=== PATIENT | female | born 1980 | race African-American/Black ===

== ENCOUNTER 2016-07-03 02:07 | Emergency (ER) | payer OTHER ==
[~2016-07-03] VITALS: Ht 157.5 cm; Wt 86.2 kg
[2016-07-03] MEDS ORDERED: CITRANATAL HAR1 EACH PO (02:24)
--- NOTE | 2016-07-03 02:42 | ED GI/GU/ABDOMINAL COMPLAINT ---
History of Present Illness General Chief Complaint: Female Urogenital Problems Stated Complaint: + PREG NOW SPOTTING Source: patient Exam Limitations: no limitations Vital Signs & Intake/Output Vital Signs & Intake/Output Vital Signs Date Time Temp Pulse Resp B/P B/P Pulse O2 O2 Flow FiO2 Mean Ox Delivery Rate 07/03 0710 98.4 72 20 114/57 97 Room Air 07/03 0221 98.0 81 16 169/62 98 Room Air Allergies Coded Allergies: No Known Allergies (07/03/16) Reconcile Medications Pnv59/Iron,Carb&Fum/FA/Dss/Dha (Citranatal [place] Capsule) 27 MG IRON-1 MG-50 MG-260 MG CAPSULE 1 CAP PO DAILY (Reported) Triage Note: 36YO FEMALE TO TRIAGE W/CO VAG SPOTTING AND CRAMPS THAT BEGAN TONITE. STATES POS TEST ON FRIDAY. LMP = 06/03 Triage Nurses Notes Reviewed? yes HPI: Patient presents for evaluation of vaginal spotting during . Patient states that she just found out she was over the past few days after 2 home tests and a follow-up blood test via her [facility] doctor. She states that over the past 2 days she has had intermittent mild blood spotting and cramping lower abdominal pain. Tonight she became concerned that she might be having a miscarriage. (MAE ORELLANA,BENITO Hernandes) LMP (ages 10-50): date ([id number]) ? y Is pt currently ? No Onset: Just prior to arrival Duration: hour(s):, better, constant Timing: recent history Quality/Severity: cramping, mild Location: suprapubic Radiation: no radiation Activities at Onset: none Prior Abdominal Problems: none Sexually Active: Yes Last Time You Were Sexual: less than 2 months ago Sexual Orientation: Heterosexual Use of Protection: No No Modifying Factors: none Associated Symptoms: abdominal pain (HIEN ORELLANA,TEODORA) Past History Travel History Traveled to [place] past 21 day No Medical History Any Pertinent Medical History? see below for history Surgical History Surgical History: non-contributory Psychosocial History What is your primary language Mongolian Tobacco Use: Refused to answer Family History Hx Contributory? No (MAE ORELLANA,BENITO Hernandes) Review of Systems Review of Systems Constitutional: Reports: no symptoms. EENTM: Reports: no symptoms. Respiratory: Reports: no symptoms. Cardiovascular: Reports: no symptoms. GI: Reports: no symptoms. Genitourinary: Reports: see HPI. Musculoskeletal: Reports: no symptoms. Skin: Reports: no symptoms. Neurological/Psychological: Reports: no symptoms. Hematologic/Endocrine: Reports: no symptoms. Immunologic/Allergic: Reports: no symptoms. All Other Systems: Reviewed and Negative (MAE ORELLANA,BENITO Hernandes) Physical Exam Physical Exam Gastrointestinal: SEE BELOW Comments: Gen.: Well-nourished, well-developed, no acute respiratory distress. Head: Normocephalic, atraumatic. Eyes: Normal inspection bilaterally Ears: Normal inspection bilaterally Nose: Normal inspection Throat/mouth : Moist mucosa Neck: Supple, full range of motion, no goiter Heart: Regular rate and rhythm, no murmurs rubs or gallops Lungs: Clear to auscultation bilaterally with normal air entry Chest: Nontender Back: Normal range of motion Abdomen: Soft, nontender, nondistended, normal bowel sounds Extremities: Normal range of motion grossly, equal radial pulses, no cyanosis clubbing or edema Neurologic: Cranial nerves grossly intact, speech is clear Skin: warm and dry Psychiatric: Calm, cooperative, no apparent delusions or hallucinations Pelvic: No blood in the vaginal vault, cervix is not effaced. (MAE ORELLANA,BENITO Hernandes) Core Measures ACS in differential dx? No Severe Sepsis Present: No Septic Shock Present: No (TEODORA STANFORD MD) Progress Differential Diagnosis: NORMAL , IMPENDING MISCARRIAGE, ECTOPIC Plan of Care: Orders Procedure Date/time Status TYPE & SCREEN (NOT X-MATCH) 07/03 0240 Complete HUMAN BETA HCG TITRE 07/03 0239 Complete Laboratory Tests 07/03/16 0240: Beta HCG, Quant 1428.7 Initial ED EKG: none Comments: 07/03/2016 6:59:12 AM patient signed out to Dr. Stanford at shift electronic data interchange specialist. (MAE ORELLANA,BENITO Hernandes) Diagnostic Imaging: Viewed by Me: Ultrasound. Discussed w/RAD: Ultrasound. Radiology Impression: No definite intrauterine gestation sac seen. No adnexal mass or ectopic cysts visualized. Corpus luteal cyst right ovary. Prominent solitary vessel left adnexa. Small right uterine fibroid. (TEODORA STANFORD MD) Departure Departure Disposition: HOME OR SELF CARE Condition: Stable Clinical Impression Primary Impression: Qualifiers: Weeks of gestation: less than 8 weeks Qualified Code: Z3A.01 - Less than 8 weeks gestation of Additional Instructions: Follow-up with your [facility] doctor for reevaluation as soon as possible to confirm an intrauterine . Your level is 1428. Your blood type is B+. Tylenol as needed for pain or discomfort. Return if any concerns or sudden worsening. Thank you for choosing the [facility] Emergency Department for your care. It was a pleasure to serve you today. Benito Sosa M.D. [facility] (MAE ORELLANA,BENITO Hernandes) Departure Time of Disposition: 847 Referrals: ALEIDA ORELLANA,AMANDA (PCP/Family) GREG ORELLANA,JOSE Macario Follow up in 2 days Departure Forms: Customer Survey General Discharge Information RELEASE- WORK (HIEN ORELLANA,TEODORA)
--- NOTE | 2016-07-03 08:42 | ULTRASOUND REPORT ---
EXAMINATION: US TRANSVAGINAL CLINICAL INFORMATION: Vaginal spotting during . COMPARISON: None TECHNIQUE: Transabdominal and transvaginal ultrasound the pelvis is performed. FINDINGS: On transabdominal ultrasound the uterus is anteverted measuring 9.3 cm in length, 5.4 cm in AP and 6.5 cm in transverse dimension. There is a large hypoechoic area in the right body of uterus partially exophytic measuring 3.99 x 3.25 x 3.17 cm suggestive of a fibroid. Right ovary measures 2.5 x 5.10 x 2.19 cm. There is a anechoic corpus luteal cyst measuring 1.4 x 1.1 x 1.4 cm. Normal vascular flow seen to right ovary on Doppler study. Left ovary measures 2.9 x 4.9 x 1.7 cm. No focal lesion seen. Normal vascular flow seen in left ovary on Doppler exam. On transvaginal ultrasound uterus measures 10 cm in length, 5.4 cm in AP and 6.8 cm in weight. Endometrial stripe measures 1.2 cm thick. Cervical length measures 3.6 cm. No intrauterine gestational sac seen. Both ovaries visualized with a corpus luteal cyst in the right ovary. Small follicular cysts are seen in the left ovary. There is no free fluid in the cul-de-sac. There is a prominent left adnexal vessel measuring 0.5 cm wide. There is no free fluid. IMPRESSION: No definite intrauterine gestation sac seen. No adnexal mass or ectopic cysts visualized. Corpus luteal cyst right ovary. Prominent solitary vessel left adnexa. Small right uterine fibroid.
[2016-07-03 08:54] VITALS: BP 116/60
== END 2016-07-03 08:54 ==
LOC: ERH 02:07
DX: O20.9 Hemorrhage in early pregnancy, unspecified (principal)

== ENCOUNTER 2016-08-08 02:40 | Emergency (ER) | payer OTHER ==
[~2016-08-08] VITALS: Ht 165.1 cm; Wt 74.8 kg
[~2016-08-08 02:40] MED LIST: CITRANATAL HAR1 EACH PO
--- NOTE | 2016-08-08 03:13 | ED GI/GU/ABDOMINAL COMPLAINT ---
History of Present Illness General Chief Complaint: Female Urogenital Problems Stated Complaint: ? 9WKS PREG STARTED BLEEDING AND CRAMPING AT WORK Source: patient Exam Limitations: no limitations Vital Signs & Intake/Output Vital Signs & Intake/Output 36 yo woman 9 weeks gestation with IUP, presents with intermittent bleeding, "At first it was dark red... I filled up 2 pads... and then it was bright red... but now it's better... I've felt some cramps too." No abdominal pain, dysuria, vaginal discharge, diarrhea, nausea, vomiting. She is otherwise well. Allergies Coded Allergies: No Known Allergies (07/03/16) Reconcile Medications Pnv59/Iron,Carb&Fum/FA/Dss/Dha (Citranatal [place] Capsule) 27 MG IRON-1 MG-50 MG-260 MG CAPSULE 1 CAP PO DAILY (Reported) Triage Nurses Notes Reviewed? yes ? y Is pt currently ? No Onset: Gradual Duration: day(s):, waxing and waning Timing: recent history Quality/Severity: cramping Location: suprapubic Radiation: no radiation Activities at Onset: none Modifying Factors: Improves With: rest. Associated Symptoms: "cramps" HPI: 36 yo woman 9 weeks gestation with intrauterine , presents with with 1 day of intermittent dark vaginal bleeding. She notes, "I filled 2 pads today.... it was dark... but then it was bright red... and I felt cramps...." She notes no nausea, vomiting, dysuria, fever, chills. She is otherwise well. Past History Medical History Any Pertinent Medical History? see below for history Surgical History Surgical History: non-contributory Psychosocial History What is your primary language Slovenian Family History Hx Contributory? No Review of Systems Review of Systems Constitutional: Reports: no symptoms. EENTM: Reports: no symptoms. Respiratory: Reports: no symptoms. Cardiovascular: Reports: no symptoms. GI: Reports: no symptoms. Genitourinary: Reports: no symptoms. Musculoskeletal: Reports: no symptoms. Skin: Reports: no symptoms. Neurological/Psychological: Reports: no symptoms. Hematologic/Endocrine: Reports: no symptoms. Immunologic/Allergic: Reports: no symptoms. All Other Systems: Reviewed and Negative Physical Exam Physical Exam General Appearance: well developed/nourished, mild distress Head: atraumatic, normal appearance Eyes: Bilateral: normal appearance. Ears, Nose, Throat, Mouth: hearing grossly normal Neck: normal inspection, supple, full range of motion Respiratory: normal breath sounds, chest non-tender, no respiratory distress, quiet respiration Cardiovascular: regular rate/rhythm Gastrointestinal: normal bowel sounds, soft, non-tender, no organomegaly Pelvic: small amount of dark blood, cervix closed. Back: normal inspection, normal range of motion Extremities: normal range of motion Neurologic/Psych: no motor/sensory deficits, awake, alert, oriented x 3 Skin: intact, normal color, warm/dry Core Measures ACS in differential dx? No Severe Sepsis Present: No Septic Shock Present: No Progress Differential Diagnosis: UTI/pyelo, threatened miscarriage vs other. Plan of Care: Orders Procedure Date/time Status URINALYSIS 08/09 451 Active HUMAN BETA HCG TITRE 08/08 0246 Active COMPREHENSIVE METABOLIC PANEL 08/08 245 Active CBC WITHOUT DIFFERENTIAL 08/08 245 Complete Laboratory Tests 08/08/16 0337: Anion Gap 11, Estimated GFR > 60, BUN/Creatinine Ratio 10.0, Glucose 85, Calcium 10.0, Total Bilirubin 0.2, AST 18, ALT 45, Alkaline Phosphatase 90, Total Protein 7.3, Albumin 4.2, Globulin 3.1, Albumin/Globulin Ratio 1.4, Beta HCG, Quant Pending, CBC w Diff MAN DIFF ORDERED, RBC 4.74, MCV 74.5 L, MCH 23.8 L, RDW 16.8 H, MPV 9.7, Gran % 42.3, Lymphocytes % 47.5, Monocytes % 8.5, Eosinophils % 1.3, Basophils % 0.4, Absolute Granulocytes 3.5, Segmented Neutrophils 36 L, Absolute Lymphocytes 3.9 H, Lymphocytes 57 H, Monocytes 7, Absolute Monocytes 0.7 H, Absolute Eosinophils 0.1, Absolute Basophils 0, Platelet Estimate ADEQUATE, Polychromasia 1+, Hypochromic-Microcytic 1+, Poikilocytosis 1+, Anisocytosis 1+, Microcytic Cells 1+, Ovalocytes 1+, PUBS MCHC 31.9 L, Fld Total RBCs Counted 100 Initial ED EKG: none Comments: bedside u/s... small IUP visualized. Departure Departure Disposition: HOME OR SELF CARE Condition: Stable Clinical Impression Primary Impression: Threatened miscarriage Referrals: ALEIDA ORELLANA,AMANDA (PCP/Family) Departure Forms: Customer Survey General Discharge Information Comments 08/08/16, 4:58am... pt wishes to leave prior to u/a, hcg results.... pt will follow up with quality control engineer later today. pt's blood type is b+... no need for rhogam.
[2016-08-08 04:00] LABS: ABSOLUTE BASOPHIL COUNT 0 /CUMM (0.0-0.2); ABSOLUTE EOSINOPHIL COUNT 0.1 /CUMM (0.0-0.7); ABSOLUTE GRANULOCYTE CT 3.5 /CUMM (1.4-6.5); ABSOLUTE LYMPH COUNT 3.9 /CUMM (1.2-3.4); ABSOLUTE MONOCYTE COUNT 0.7 /CUMM (0.10-0.60); BASOPHIL % 0.4 % (0.0-2.0); EOSINOPHIL % 1.3 % (0-5); GRANULOCYTE % 42.3 % (42.2-75.2); HEMATOCRIT 35.3 % (37-47); MEAN CORPUSCULAR HGB 23.8 PG (27.0-31.0); MEAN CORPUSCULAR HGB CONC 31.9 G/DL (33.0-37.0); MEAN CORPUSCULAR VOLUME 74.5 FL (81.0-99.0); MEAN PLATELET VOLUME 9.7 FL (7.4-10.4); PLATELET COUNT 297 /CUMM (130-400); RBC DISTRIBUTION WIDTH 16.8 % (11.5-14.5); RED BLOOD CELL CT 4.74 /CUMM (4.20-5.40); WHITE BLOOD CELL COUNT 8.2 /CUMM (4.8-10.8)
[2016-08-08 05:00] VITALS: BP 128/76
== END 2016-08-08 05:24 ==
LOC: ERH 02:40
PROVIDERS: Pediatrics
DX: O20.0 Threatened abortion (principal)

== ENCOUNTER 2016-08-08 23:25 | Emergency (ER) | payer OTHER ==
[~2016-08-08] VITALS: Ht 154.9 cm; Wt 86.2 kg
--- NOTE | 2016-08-09 00:20 | ED GENERAL ADULT ---
History of Present Illness General Chief Complaint: Female Urogenital Problems Stated Complaint: PT SEEN HERE LAST NIGHT 9 WKS PREG OPASSING CLOTS Source: patient Exam Limitations: no limitations Vital Signs & Intake/Output Vital Signs & Intake/Output Vital Signs Date Time Temp Pulse Resp B/P B/P Pulse O2 O2 Flow FiO2 Mean Ox Delivery Rate 08/09 0256 97.2 87 18 118/63 99 Room Air 08/08 2355 97.1 76 18 127/82 100 Room Air ED Intake and Output 08/09 0000 08/08 1200 Intake Total Output Total Balance Patient 190 lb Weight Weight Reported by Patient Measurement Method Allergies Coded Allergies: No Known Allergies (08/08/16) Reconcile Medications Pnv59/Iron,Carb&Fum/FA/Dss/Dha (Citranatal [place] Capsule) 27 MG IRON-1 MG-50 MG-260 MG CAPSULE 1 CAP PO DAILY (Reported) Triage Note: TRIAGE: PATIENT TO ER FROM HOME REPORTING +CRAMPING AND PASSING CLOTS TONIGHT, SEEN HERE LAST NIGHT FOR SAME REPORTING NO CLOTS YESTERDAY. PATIENT REPORTS "I'VE BEEN BLEEDING SINCE I FOUND OUT BI WAS , BUT NO CLOTS UNTIL YESTERDAY." CURRENTLY 9 WEEKS, DUE:03/07/17, OBGYN:DR. DUNCAN (?). DENIES N/V/D. Triage Nurses Notes Reviewed? yes Onset: Gradual Duration: day(s): Timing: recent history Severity: moderate Severity Numbers: 5 No Modifying Factors: none Associated Symptoms: cramping : Yes Patient currently breastfeeds: No HPI: 36yo 9 weeks female presents to ED c/o vaginal bleeding with clots and cramping. Patient was seen and evaluated here yesterday for vaginal bleeding however cramping and passing clots began today. Yesterday her os was closed. She states that clots have been as large as quarters and bleeding is moderate and constant. She states cramping feels similar to menstrual cramps and are about 4-5/10 on pain scale. She last saw her OBGYN 2 weeks ago, she states heart tones were normal. She has had intermittent bleeding during her however previous episodes were not as severe and lasted less than 1 day per episode. She has no history of or miscarrage. She denies fevers, chills , nausea, vomiting, chest pain, dyspnea, cough, dysuria. (ESME WALTON) Past History Travel History Traveled to [place] past 21 day No Medical History Any Pertinent Medical History? none Neurological: NONE EENT: NONE Cardiovascular: NONE Respiratory: NONE Gastrointestinal: NONE Hepatic: NONE Renal: NONE Musculoskeletal: NONE Psychiatric: NONE Endocrine: NONE Blood Disorders: NONE Cancer(s): NONE COTTONSEED MEAT PRESSER/Reproductive: NONE Surgical History Surgical History: non-contributory Psychosocial History What is your primary language Citizen [place] Tobacco Use: Never used Family History Hx Contributory? No (ESME WALTON) Review of Systems Review of Systems Constitutional: Reports: no symptoms. Comments Review of systems: See HPI, All other systems negative. Constitutional, no chills fever or weight loss HEENT: No visual changes no sore throat no congestion Cardiovascular: No chest pain ,palpitation , orthopnea or ankle swelling Skin, no jaundice no rashes Respiratory: No dyspnea cough sputum or hemoptysis GI: No nausea no vomiting, +abdominal pain : No dysuria No hematuria COTTONSEED MEAT PRESSER: +vaginal bleeding +cramping Muscle skeletal: no back pain, no neck pain, Neurologic: No numbness no confusion Psych: No stress anxiety or depression,. Heme/endocrine: No bruising no bleeding no polyuria or polydipsia Immunology: No splenectomy or history of AIDS (ESME WALTON) Physical Exam Physical Exam General Appearance: well developed/nourished, no apparent distress, alert, awake Comments: Well-developed well-nourished person in no acute distress HEENT: Normal EENT exam, extraocular motion intact. Nose is atraumatic. Neck: Supple, normal range of motion Back: Nontender, Full range of motion Cardiovascular: Regular rate and rhythms no murmurs rubs or gallops, normal JVP Respiratory: No respiratory distress.breath sounds clear to auscultation bilaterally Abdomen: Soft, mild RLQ and LLQ tenderness, nondistended, no appreciable organomegaly. Normal bowel sounds. No ascites COTTONSEED MEAT PRESSER: Bimanual exam reveals bleeding, os closed, uterine tenderness, no adenexal tenderness or mass Extremity: No edema, no calf tenderness to palpation, normal and equal pulses. Neuro: Alert oriented x3, motor sensory normal Skin: No appreciable rash on exposed skin, skin is warm and dry. Psych: Mood and affect is normal, memory and judgment is normal. Core Measures ACS in differential dx? No CVA/TIA Diagnosis: No Severe Sepsis Present: No Septic Shock Present: No (ESME WALTON) Progress Differential Diagnoses I considered the following diagnoses in my evaluation of the patient: [ Incomplete , complete , 1st trimester bleeding, ectopic , incompetent cervix] Plan of Care: Orders Procedure Date/time Status URINALYSIS 08/10 23 Complete HUMAN BETA HCG TITRE 08/10 23 Complete COMPREHENSIVE METABOLIC PANEL 08/10 23 Complete CBC WITHOUT DIFFERENTIAL 08/10 23 Complete RHOGAM WORK-UP 08/10 23 Complete Current Medications Sig/Enoch Start time Last Medication Dose Stop Time Status Admin Acetaminophen 975 MG ONCE ONE 08/09 299 UNVr (Tylenol) 08/09 300 Laboratory Tests 08/09/16 0200: Anion Gap 10, Estimated GFR > 60, BUN/Creatinine Ratio 10.0, Glucose 98, Calcium 10.0, Total Bilirubin 0.2, AST 19, ALT 46, Alkaline Phosphatase 79, Total Protein 7.1, Albumin 4.0, Globulin 3.1, Albumin/Globulin Ratio 1.3, Beta HCG, Quant 93710.0, CBC w Diff MAN DIFF ORDERED, RBC 4.74, MCV 74.7 L, MCH 23.6 L, RDW 16.9 H, MPV 9.5, Gran % 42.3, Lymphocytes % 46.6, Monocytes % 9.0, Eosinophils % 1.6, Basophils % 0.5, Absolute Granulocytes 3.5, Segmented Neutrophils 39 L, Absolute Lymphocytes 3.9 H, Lymphocytes 56 H, Monocytes 2, Absolute Monocytes 0.7 H, Eosinophils 3, Absolute Eosinophils 0.1, Absolute Basophils 0, Platelet Estimate ADEQUATE, Polychromasia 1+, Hypochromic- Microcytic 1+, Poikilocytosis 1+, Anisocytosis 1+, Microcytic Cells 1+, Ovalocytes 1+, Elliptocytes FEW, PUBS MCHC 31.7 L, Fld Total RBCs Counted 100, Urine Color PINK H, Urine Clarity CLDY H, Urine pH 6.0, Ur Specific [place] 1.025, Urine Protein 100 H, Urine Ketones NEG, Urine Nitrite NEG, Urine Bilirubin NEG, Urine Urobilinogen 0.2, Ur Leukocyte Esterase TRACE H, Ur Microscopic SEDIMENT EXAMINED, Urine RBC PACKD H, Urine WBC 3-5 H, Ur Epithelial Cells MOD H, Urine Bacteria MOD H, Urine Mucus FEW, Urine Hemoglobin LARGE H, Urine Glucose NEG Patient is lying in bed, no acute distress. Her vital signs are stable. (ESME WALTON) Initial ED EKG: none Hand-Off Endorsed To: TEODORA ROSE MD Endorsed Time: 54 Pending: labs Comments: Patient will be signed out to Dr. Rose and pending labwork, likely threatened miscarriage. We'll trend hCG level. Patient will need to follow up with OB for ultrasound. (ESME WALTON) Departure Departure Disposition: HOME OR SELF CARE Condition: Stable Clinical Impression Primary Impression: Threatened miscarriage Referrals: ALEIDA ORELLANA,AMANDA (PCP/Family) Additional Instructions: Follow-up with your CHEMICAL DETECTION EXPERT. IF YOU ARE UNABLE TO GET IN tomorrow use outpatient ultrasound form for ultrasound. Increase fluids. Pelvic arrests, no heavy lifting. No strenuous activity. TAKE TYLENOL FOR PAIN. RETURN FOR WORSENING SYMPTOMS OR CONCERNS. Departure Forms: Customer Survey General Discharge Information (ESME WALTON) Departure Time of Disposition: 320 PA/BASKETBALL REFEREE Co-Sign Statement Statement: ED Attending supervision documentation- x I saw and evaluated the patient. I have also reviewed all the pertinent lab results and diagnostic results. I agree with the findings and the plan of care as documented in the PA's/BASKETBALL REFEREE's documentation. [] I have reviewed the ED Record and agree with the PA's/BASKETBALL REFEREE's documentation. [] Additions or exceptions (if any) to the PAs/BASKETBALL REFEREE's note and plan are summarized below: [] (TEODORA ROSE MD) Critical Care Note Critical Care Note Critical Care Time: non-applicable (ESME WALTON)
[2016-08-09 02:13] LABS: ABSOLUTE BASOPHIL COUNT 0 /CUMM (0.0-0.2); ABSOLUTE EOSINOPHIL COUNT 0.1 /CUMM (0.0-0.7); ABSOLUTE GRANULOCYTE CT 3.5 /CUMM (1.4-6.5); ABSOLUTE LYMPH COUNT 3.9 /CUMM (1.2-3.4); ABSOLUTE MONOCYTE COUNT 0.7 /CUMM (0.10-0.60); BASOPHIL % 0.5 % (0.0-2.0); EOSINOPHIL % 1.6 % (0-5); GRANULOCYTE % 42.3 % (42.2-75.2); HEMATOCRIT 35.4 % (37-47); MEAN CORPUSCULAR HGB 23.6 PG (27.0-31.0); MEAN CORPUSCULAR HGB CONC 31.7 G/DL (33.0-37.0); MEAN CORPUSCULAR VOLUME 74.7 FL (81.0-99.0); MEAN PLATELET VOLUME 9.5 FL (7.4-10.4); PLATELET COUNT 291 /CUMM (130-400); RBC DISTRIBUTION WIDTH 16.9 % (11.5-14.5); RED BLOOD CELL CT 4.74 /CUMM (4.20-5.40); WHITE BLOOD CELL COUNT 8.3 /CUMM (4.8-10.8)
[2016-08-09 02:56] VITALS: BP 118/63
== END 2016-08-09 03:36 ==
LOC: ERH 23:25
PROVIDERS: Physician Assistant
DX: O20.0 Threatened abortion (principal)
CPT/HCPCS: 81001

== ENCOUNTER → 2017-03-20 | Day surgery (SDC) | payer OTHER ==
[~2017-03-20] VITALS: Ht 157.5 cm; Wt 90.7 kg
--- NOTE | 2017-03-20 16:15 | Operative Report ---
Operative/Inv Procedure Report Surgery Date: 03/20/17 Name of Procedure: Laparoscopy chromopertubation lysis of adhesions Pre-Operative Diagnosis: Pelvic pain Post-Operative Diagnosis: Same adhesions fibroid tubal occlusion bilateral Estimated Blood Loss: less than 50ml Surgeon/Charrer: Wilver ORELLANA,Jody Macario Anesthesia: general endotracheal tube, block Operative/Procedure Note Note: Procedure note patient was taken the operating room placed supine position after adequate anesthesia patient placed in dorsolithotomy position the vagina was prepped draped so fashion the bladder was catheterized examination under anesthesia was performed on eisenberg speculum was placed into the vagina CO2 tenaculum was placed 12:00 on cervix a Pederson cannula was placed into the on cervix on tubing with methylene blue was attached to surgeon regowned and gloved at the level the umbilicus a stab incision was made to allow for the entry of Veress needle the abdomen was insufflated approximately 4 L CO2 to liver edge dullness which point the Veress needle was removed a 10 mm trocar was inserted atraumatically the umbilicus sheath remained in place through that sheath a laparoscope was placed under direct visualization a 5 mm port was placed 2 fingerbreadths of symptoms pubis in midline through that port on a peanut was placed pictures were taken on the on lysis of adhesions of the omentum was performed on methylene blue was injected through the tubes and both tubes were occluded on care was taken to reposition the tubes to see if they would open on the R occluded on on the left at the cornua and on the right on at the isthmus. At this point maximal amount of CO2 was removed from the abdomen on since removed on the abdomen under direct visualization patient tolerated that well on the incision at the umbilicus was oversewn 0 for the fascia 3 over the skin 30 was used on the lower incision for the skin Marcaine was injected underneath the skin on sterile dressings were applied at the end the case Pederson cannula was moved the Hartley was removed wants was removed from the vagina the patient was returned spine position she was awakened from anesthesia and transferred recovery room awake alert counts correct Findings: Centimeter fundal fibroid on the right normal ovaries bilaterally both tubes occluded adhesions from the omentum to the lower uterine segment
== END ==
LOC: STS 02:14
DX: R10.2 Pelvic and perineal pain (principal); N83.8 Other noninflammatory disorders of ovary, fallopian tube and broad ligament; N73.6 Female pelvic peritoneal adhesions (postinfective); D25.9 Leiomyoma of uterus, unspecified
CPT/HCPCS: 81025; 88305; C9399; J1200; J2250